=== PATIENT | female | born 1975 | race Hispanic/Latino ===

== ENCOUNTER 2020-10-02 13:49 | Emergency (ER) | payer BC ==
--- OUTSIDE RECORDS SUMMARY | 2020-10-02 13:52 | XMS REPORT | Continuity of Care Document ---
:1975 Author Organization [facility] t Address [address] [place] [address] Care Team Providers Name Role Phone Only, [facility] Test Attending Clinician Unavailable Slick VIEYRA, Ambika Attending Clinician Problems This patient has no known problems. Allergies, Adverse Reactions, Alerts This patient has no known allergies or adverse reactions. Medications This patient has no known medications. Procedures This patient has no known procedures. Encounters Start End Encounter Admission Attending Care Care Encounter Source Date/Time Date/Time Type Type Clinicians Facility Department ID 2020-07-27 2020-07-27 Laboratory Only, [facility] [id number] 11:25:42 11:40:42 Only Test [place] [id number] [place] [id number] [place] [id number] 2020-05-14 2020-05-14 Refill Slick [facility] [id number] 00:00:00 00:00:00 [facility] A [facility] [id number] [place] [id number] [facility] [id number] nal [address] Results This patient has no known results.
--- OUTSIDE RECORDS SUMMARY | 2020-10-02 13:52 | XMS REPORT | Summary of Care ---
:1975 Author Organization [facility] Address [address] [place] [id number] Care Team Providers Name Role Phone Jamie Kruger MD Primary Care Provider Reason for Visit Reason Comments LAB WORK Auth/Cert Status Reason Specialty Diagnoses / Referred By Referred To Procedures Contact Contact Clinical Medical Diagnoses COVID SCREEN [facility] Lab Laboratory Procedures COVID SCREEN [address] [place] [address] Encounter Details Date Type Department Care Team Description 07/27/2020 Laboratory Only [facility] Arden Morales MD [address] [place] [id number] COVID-19 ruled out Phlebotomy Only, [facility] Test (Primary Dx) Lab-[address] [phone] Allergies No Known Allergiesdocumented as of this encounter (statuses as of 07/27/2020) Medications Medication Sig Dispensed Refills Start Date End Date Status rosuvastatin 10 mg Take 1 tablet by 30 tablet 5 12/24/2018 Active tabletIndications: mouth at Mixed hyperlipidemia bedtime. meclizine 12.5 mg Take 1 tablet by 30 tablet 1 12/03/2019 Active tabletIndications: mouth 3 (three) Vertigo times daily as needed for Dizziness. HAWTHORN ORAL Take by mouth. 0 Active INDONESIAN HAWTHORN (TEJOCOTE) busPIRone 10 mg Take 0.5-1 60 tablet 0 12/04/2019 Ac tive tabletIndications: tablets by mouth Adjustment disorder 2 (two) times with anxiety daily as needed (anxiety). benzonatate (TESSALON Take 2 capsules 40 capsule 0 03/17/2020 Active PERLES) 100 mg by mouth 3 capsuleIndications: (three) times COVID-19 virus daily as needed infection, Cough for Cough. azithromycin (ZITHROMAX Take 1 tablet by 1 Package 0 0 Active Z-MARSHA) 250 mg mouth daily. tabletIndications: Take 500 mg day COVID-19 virus 1, then 250 mg infection, Cough days 2 to 5. lisinopriL 10 mg Take 1 tablet by 90 tablet 1 05/18/2020 Active tabletIndications: mouth daily. Essential hypertension documented as of this encounter (statuses as of 07/27/2020) Active Problems Problem Noted Date Adjustment disorder with anxiety 01/05/2020 Prediabetes 07/14/2019 B12 deficiency 07/14/2019 Chronic fatigue 07/12/2019 Carpal tunnel syndrome, right 07/12/2019 Gastroesophageal reflux disease, esophagitis presence not specified 07/12/2019 Mixed hyperlipidemia 12/24/2018 Fatty liver 05/23/2017 Multiple joint pain 04/08/2017 Vitamin D deficiency 04/08/2017 Abnormal liver function tests 04/08/2017 Abnormal thyroid stimulating hormone (TSH) level 04/08 Overview: Repeat TSH, FT4, and anti-thyroid antibo dy levels are all normal Essential hypertension 03/07/2017 Obesity (BMI 30-39.9) 03/07/2017 documented as of this encounter (statuses as of 07/27/2020) Immunizations Name Administration Dates Next Due TDAP 11/27/2018 TDAP (ADACEL) VACCINE 03/06/2017 documented as of this encounter Social History Tobacco Use Types Packs/Day Years Used Date Never Smoker Smokeless Tobacco: Never Used Alcohol Use Drinks/Week oz/Week Comments Yes 2 Standard drinks or equivalent 2.0 social Sex Assigned at Date Recorded Not on file documented as of this encounter Last Filed Vital Signs Not on filedocumented in this encounter Nursing Notes Perri Sousa - 07/27/2020 11:15 AM CSTcovid documented in this encounter Plan of Treatment Name Type Priority Associated Diagnoses Date/Ti me COVID-19 (MOLECULAR LAB Routine COVID-19 ruled out 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) Name Type Priority Associated Diagnoses Order S chedule COVID-19 (MOLECULAR LAB Routine COVID-19 ruled out Ex pected: 07/27/2020, TESTING Expires: 021 NUCLEIC ACID AMPLIFICATION) Health Maintenance Due Date Last Done Comments Breast Cancer Screening 2017 (MAMMOGRAM) INFLUENZA VACCINE (#1) 2020 Depression Screening 03/23/2021 03/23/2020 PAP SMEAR 12/16/2021 12/16/2018 DTaP,Tdap,and Td Vaccines (3 11/27/2028 11/27/2018, - Td) 03/06/2017 PNEUMOCOCCAL 0-64 YEARS Aged Out No longe r eligible based COMBINED SERIES on patient's age to complete this to pic documented as of this encounter Results Not on filedocumented in this encounter Visit Diagnoses Diagnosis COVID-19 ruled out - Primary documented in this encounter Additional Health Concerns Infection Onset Date Last Indicated Resolved Time COVID-19 Rule Out 07/27/2020 07/27/2020 documented as of this encounter Insurance Payer Benefit Plan Subscriber ID Effective Dates Phone Address Type / Group [facility] [id number] 2017-Radha [phone] [address] PPO/POS [place] [employer] [id number] [place] [address] (Work) [id number] documented as of this encounter
[2020-10-02] MEDS ORDERED: LIDOCAINE 1% MPF 5 ML VIAL ONE (14:26)
--- NOTE | 2020-10-02 14:32 | EDPHYS ---
Physician Documentation [facility] Name: Libby Gonzales Age: 45 yrs Sex: Female : 1975 Arrival Date: 10/02/2020 Time: 13:52 Bed 8 Private MD: ED Physician Rolando Avalos HPI: 10/02 14:24 This 45 yrs old Female presents to ER via Ambulatory with complaints of jmm Laceration To Hand. 14:24 The patient has a laceration related to:. Onset: The symptoms/episode began/occurred jmm acutely, just prior to arrival. Associated signs and symptoms: Pertinent negatives: deformity, dizziness, heavy bleeding, loss of consciousness, numbness distal to injury, suspected foreign body. The patient has not experienced similar symptoms in the past. Patient states she cut her left hand when a ceramic pot cracked while attempting to life. Not UTD on tetanus immunization. . 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 - Social history:: Smoking status: Patient denies any tobacco usage or history of. ROS: 14:24 Constitutional: Negative for fever, chills, and weight loss, Cardiovascular: Negative jmm for chest pain, palpitations, and edema, Respiratory: Negative for shortness of breath, cough, wheezing, and pleuritic chest pain. 14:24 Skin: Positive for laceration(s). 14:24 All other systems are negative. Exam: 14:24 Constitutional: This is a well developed, well nourished patient who is awake, alert, jmm and in no acute distress. Head/Face: atraumatic. Eyes: EOMI, no conjunctival erythema appreciated ENT: Moist Mucus Membranes Neck: Trachea midline, Supple Chest/axilla: Normal chest wall appearance and motion. Cardiovascular: Regular rate and rhythm. No edema appreciated Respiratory: Normal respirations, no respiratory distress appreciated Abdomen/GI: Non distended, soft Back: Normal ROM 14:24 Skin: 2 cm laceration noted to the palm of the left hand. 14:24 Neuro: Orientation: is normal, Mentation: is normal, Memory: is normal. 14:24 Psych: Behavior/mood is pleasant, cooperative. Vital Signs: 13:58 BP 112 / 69; Pulse 85; Resp 16; Temp 99.1; Pulse Ox 96% ; Weight 87.54 kg; Height 5 ft. iw 4 in. (162.56 cm); Pain 7/10; 13:58 Body Mass Index 33.13 (87.54 kg, 162.56 cm) iw Laceration: 14:27 Wound Repair of 2cm ( 0.8in ) subcutaneous laceration to left hand. Distal jmm neuro/vascular/tendon intact. Anesthesia: Local anesthetic administered with 2 mls of 1% lidocaine. Wound prep: Simple cleansing with betadine by me. Skin closed with 3 5-0 Prolene using simple sutures and sterile technique. Patient tolerated well. MDM: 14:08 Patient medically screened. mitra 14:27 Data reviewed: vital signs, nurses notes. Counseling: I had a detailed discussion with mitra the patient and/or guardian regarding: the historical points, exam findings, and any diagnostic results supporting the discharge/admit diagnosis, the need for outpatient follow up, to return to the emergency department if symptoms worsen or persist or if there are any questions or concerns that arise at home. ED course: Patient given wound infection return precautions. . 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 Exp: jd3 12/10/2021. Lot #: [id number]. } Route: IM; Site: right deltoid; 14:46 Follow up: Response: No adverse reaction jd3 Disposition: 17:19 Co-signature as Attending Physician, Rolando Avalos MD. rn Disposition: 10/02/20 14:32 Discharged to Home. Impression: Hand Laceration. - Condition is Stable. - Discharge Instructions: Laceration Care, Adult. - Medication Reconciliation Form, Thank You Letter, Antibiotic Education, Prescription Opioid Use form. - Follow up: Private Physician; When: 1 week; Reason: Recheck today's complaints, Continuance of care, Staple/Suture removal, Re-evaluation by your physician. Signatures: Rudy Shirley PA PA jmm Williams, Irene, RN RN iw Nieto, Roman, MD MD rn Davies, Jonathon, RN RN jd3 Corrections: (The following items were deleted from the chart) 14:47 14:32 10/02/2020 14:32 Discharged to Home. Impression: Hand Laceration. Condition is jd3 Stable. Forms are Medication Reconciliation Form, Thank You Letter, Antibiotic Education, Prescription Opioid Use. Follow up: Private Physician; When: 1 week; Reason: Recheck today's complaints, Continuance of care, Staple/Suture removal, Re-evaluation by your physician. mitra
--- NOTE | 2020-10-02 14:32 | ER ---
Nurse's Notes [facility] Name: Libby Gonzales Age: 45 yrs Sex: Female : 1975 Arrival Date: 10/02/2020 Time: 13:52 Bed 8 Private MD: Diagnosis: Hand Laceration Presentation: 10/02 13:58 Chief complaint: Patient states: picked up a ceramic pot at [facility] and it cracked, iw lacerated the inside of her left hand. Coronavirus screen: At this time, the client does not indicate any symptoms associated with coronavirus-19. Ebola Screen: Patient negative for fever greater than or equal to 101.5 degrees Fahrenheit, and additional compatible Ebola Virus Disease symptoms Patient denies exposure to infectious person. Patient denies travel to an Ebola-affected area in the 21 days before illness onset. No symptoms or risks identified at this time. Complicating Factors: There are no complicating factors for this patient. Initial Sepsis Screen: Does the patient meet any 2 criteria? No. Patient's initial sepsis screen is negative. Does the patient have a suspected source of infection? No. Patient's initial sepsis screen is negative. Risk Assessment: Do you want to hurt yourself or someone else? Patient reports no desire to harm self or others. Onset of symptoms was October 02, 2020. 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 - Social history:: Smoking status: Patient denies any tobacco usage or history of. Screenin:14 Abuse screen: Denies threats or abuse. Nutritional screening: No deficits noted. jd3 Tuberculosis screening: No symptoms or risk factors identified. Fall Risk Ambulatory Aid- None/Bed Rest/Nurse Assist (0 pts). Gait- Normal/Bed Rest/Wheelchair (0 pts) Mental Status- Oriented to own ability (0 pts). Total Ye Fall Scale indicates No Risk (0-24 pts). Assessment: 14:12 General: Appears in no apparent distress. comfortable, Behavior is calm, cooperative, jd3 appropriate for age. Pain: Complains of pain in palm of left hand Quality of pain is described as stinging. Neuro: Level of Consciousness is awake, alert, obeys commands, Oriented to person, place, time, situation. Cardiovascular: Capillary refill < 3 seconds Patient's skin is warm and dry. Respiratory: Airway is patent Respiratory effort is even, unlabored, Respiratory pattern is regular, symmetrical, Denies cough, shortness of breath. GI: No signs and/or symptoms were reported involving the gastrointestinal system. : No signs and/or symptoms were reported regarding the genitourinary system. EENT: No signs and/or symptoms were reported regarding the EENT system. Derm: Skin is intact, Skin is dry, Skin is normal, Skin temperature is warm. Musculoskeletal: Circulation, motion, and sensation intact. Range of motion: intact in all extremities. Injury Description: Laceration sustained to left hand is clean, 0.5 to 2.5 cm long, not bleeding. 14:46 Reassessment: Patient appears in no apparent distress at this time. Patient and/or jd3 family updated on plan of care and expected duration. Pain level reassessed. Patient is alert, oriented x 3, equal unlabored respirations, skin warm/dry/pink. Patient states feeling better. Vital Signs: 13:58 BP 112 / 69; Pulse 85; Resp 16; Temp 99.1; Pulse Ox 96% ; Weight 87.54 kg; Height 5 ft. iw 4 in. (162.56 cm); Pain 7/10; 13:58 Body Mass Index 33.13 (87.54 kg, 162.56 cm) ED Course: 13:52 Patient arrived in ED. ag5 13:59 Triage completed. iw 14:01 Duke Apodaca, JHONNY is Primary Nurse. j 14:01 Rudy Shirley PA is PHCP. [facility] 14:01 Rolando Avalos MD is Attending Physician. [facility] 14:02 Arm band placed on. iw 14:14 Patient has correct armband on for positive identification. Bed in low position. Call jd3 light in reach. Side rails up X 1. Pulse ox on. NIBP on. 14:18 Wound care: to laceration located on left hand was cleaned with Hibiclens, Patient 4 tolerated well. 14:23 Assist provider with laceration repair on palm of left hand that was 2.5 cm. or less jd3 using sutures. Set up tray. Performed by Rudy BREWER Dressed with 4X4s, Patient tolerated well. 14:43 Dressings: non-adherent dressing x 1 left hand 4X4s X 1; left hand. dh4 14:46 Patient did not have IV access during this emergency room visit. jd3 Administered Medications: 14:11 Drug: Lidocaine (1 %) 20 ml Volume: 20 ml; Route: Infiltration; jd3 14:47 Follow up: Response: No adverse reaction jd3 14:23 Drug: Tetanus-Diphtheria Toxoid Adult 0.5 ml {Rn Perioperative: [facility]. Exp: jd3 12/10/2021. Lot #: [id number]. } Route: IM; Site: right deltoid; 14:46 Follow up: Response: No adverse reaction jd3 Outcome: 14:32 Discharge ordered by . mitra 14:45 Discharged to home ambulatory, with family. jd3 14:45 Condition: stable 14:45 Discharge instructions given to patient, Instructed on discharge instructions, follow up and referral plans. Demonstrated understanding of instructions, follow-up care. 14:47 Patient left the ED. jd3 Signatures: Rudy Shirley PA PA jmm Williams, Irene, RN RN iw Davies, Jonathon, RN RN jd3 Gaskin, Ajare ag5 Huhn, Donald [facility] Corrections: (The following items were deleted from the chart) 14:00 13:58 Pulse 85bpm; Resp 16bpm; Pulse Ox 96%; Temp 99.1F; 87.54 kg; Height 5 ft. 4 in.; iw BMI: 33.1; Pain 7/10; iw 14:46 14:23 Assist provider with laceration repair on palm of left hand that was 2.5 cm. or jd3 less using sutures. Set up tray. Performed by Rudy BREWER Dressed with 4X4s, Patient tolerated well. jd3
[2020-10-02] MEDS ORDERED: TETANUS & DIPHTHERIA TOX,ADULT 0.5 ML VIAL ONE (14:34)
[2020-10-02 14:59] VITALS: BP 112/69; TEMP 99.1; O2SAT 96
== END 2020-10-02 14:47 | disposition home or self-care (01) ==
LOC: ER 13:49
PROC: 0JQK0ZZ Repair Left Hand Subcutaneous Tissue and Fascia, Open Approach (ICD-10-PCS; principal; 2020-10-02)
DX: S61.412A Laceration without foreign body of left hand, initial encounter (principal); W26.8XXA Contact with other sharp object(s), not elsewhere classified, initial encounter; Y93.89 Activity, other specified; Y92.9 Unspecified place or not applicable; I10 Essential (primary) hypertension; Z23 Encounter for immunization
CPT/HCPCS: 90471; 90714; 99284